=== PATIENT | female | born 1980 | race Caucasian/White ===

== ENCOUNTER 2024-11-20 14:49 | Emergency (ER) | payer OTHER, SELFPAY ==
[2024-11-20] VITALS (21 sets, daily range): BP systolic 98–117; BP diastolic 60–73; PULSE 86–109; TEMP 37.2; O2SAT 94–100; BMI 23.9
--- NOTE | 2024-11-20 15:08 | ECG_ITS ---
[facility] Test Date: 2024-11-20 Pat Name: JULI GONSALVES Department: Room: - Gender: Female [employer]: : 1980 Requested By: Order Number: [id number] Reading MD: PRIYA AKHTAR Measurements Intervals [place] Rate: 102 P: 66 [place]: 124 QRS: 83 QRSD: 82 T: 58 QT: 360 QTc: 419 Interpretive Statements 1120 Sinus tachycardia [address] depression Inferolateral ST/T wave changes, can't exclude inferolateral ischemia 9140 abnormal rhythm ECG No previous ECG available for comparison Electronically Signed On 11-21-2024 8:13:10 EST by PRIYA AKHTAR
--- NOTE | 2024-11-20 15:10 | ED.CHESTPAI1 ---
Documented by User: KATE Pool 11/20/24 17:33 HPI - Chest Pain General Chief Complaint: Chest Pain Stated Complaint: CHEST TIGHTNESS Time Seen by Provider: 11/20/24 15:03 Source: patient Mode of arrival: walk-in Limitations: no limitations Related Data Previous Rx's ?Medication ?Instructions ?Recorded fwwtirbtzrcxtmg-xpbuqhwialhtvhy-YF 10 ml PO Q6H PRN cold symptoms 11/20/24 2 mg-30 mg-10 mg/5 mL oral syrup #200 mL (Bromfed DM) methylprednisolone 4 mg tablets in See Rx Instructions .Route 11/20/24 a dose pack (Medrol (Micah)) .COMPLEX #21 ea Allergies Allergy/AdvReac Type Severity Reaction Status Date / Time No Known Drug Allergies Allergy Verified 11/20/24 15:02 PFSH PFSH Social History Little interest or pleasure in doing things: not at all Feeling down, depressed, or hopeless: not at all Exam Constitutional Vital Signs, click to edit/add: Last Vital Signs Temp 99.0 F 11/20/24 14:59 Pulse 98 H 11/20/24 17:30 Resp 18 11/20/24 17:30 BP 104/64 11/20/24 17:30 Pulse Ox 96 11/20/24 17:20 O2 Del Method Room Air 11/20/24 15:27 Course Vital Signs Vital signs: Vital Signs Pulse Rate 109 H 11/20/24 14:58 Respiratory Rate 39 H 11/20/24 14:58 Blood Pressure 117/69 11/20/24 14:58 Pulse Oximetry 100 11/20/24 14:58 Temperature 99.0 F 11/20/24 14:59 Pulse Rate 98 H 11/20/24 17:30 Respiratory Rate 18 11/20/24 17:30 Blood Pressure 104/64 11/20/24 17:30 Pulse Oximetry 96 11/20/24 17:20 Oxygen Delivery Method Room Air 11/20/24 15:27 MDM - Chest Pain MDM Narrative Medical decision making narrative: Patient treated with IV fluids, Ativan with significant improvement of hyperventilation. Laboratory studies reviewed and noted within normal limits including D-dimer, troponin and CBC. She was found to have an elevated lactic acid and repeat lactic acid is within normal limits after IV fluid administration. Tachycardia has resolved. Patient is breathing easily and resting comfortably on reevaluation. Chest x-ray with no obvious consolidation in the chest. She is placed on Bromfed-DM and a Medrol Dosepak. Follow-up PCP and return to the ER if symptoms change or worsen. SUPERVISED APC VISIT, PHYSICIAN ATTESTATION: Based on the medical record the care appears appropriate. ? Medical Records Data Attestation: I reviewed the patient's medical records. Lab Data Attestation: I reviewed the patient's lab results. Labs: Lab Results 11/20/24 11/20/24 Range/Units 15:11 16:52 WBC 7.3 (4.0-11.0) 10^3/uL RBC 4.11 L (4.20-5.40) 10^6/uL Hgb 13.1 (12.0-16.0) g/dL Hct 38.5 (36.0-48.0) % MCV 93.7 (81.0-99.0) fL MCH 31.9 (26.7-34.0) pg MCHC 34.0 (29.9-35.2) g/dL RDW 12.0 (11.0-15.0) % Plt Count 227 (150-450) 10^3/uL MPV 10.1 (9.5-13.5) fL Neut % (Auto) 76.0 H (43.0-75.0) % Lymph % (Auto) 9.8 L (20.5-60.0) % [place] % (Auto) 13.1 H (1.7-12.0) % Eos % (Auto) 0.4 L (0.9-7.0) % Baso % (Auto) 0.4 (0.2-2.0) % Neut # (Auto) 5.6 (1.4-6.5) 10^3/uL Lymph # (Auto) 0.7 L (1.2-3.8) 10^3/uL [place] # (Auto) 1.0 H (0.3-0.8) 10^3/uL Eos # (Auto) 0.0 (0.0-0.7) 10^3/uL Baso # (Auto) 0.0 (0.0-0.1) 10^3/uL Abs Immat Gran (auto) 0.02 (0.00-0.03) 10^3/uL Imm/Tot Granulo (auto) 0.3 (0.0-0.5) % PT 12.3 H (9.0-11.6) sec INR 1.18 D-Dimer <0.19 (<=0.59) mg/L FEU VBG pH 7.547 H (7.330-7.430) VBG pCO2 25.5 L (40.0-52.0) mmHg Sodium 138 (136-145) mmol/L Potassium 4.0 (3.5-5.1) mmol/L Chloride 102 (98-107) mmol/L Carbon Dioxide 23.0 (21.0-32.0) mmol/L Anion Gap 17.0 BUN 15.0 (7.0-18.0) mg/dL Creatinine 1.20 H (0.55-1.02) mg/dL Est GFR ( Amer) 59 L (>=60 mL/min/1.73m^2) Est GFR (Non-Af Amer) 49 L (>=60 mL/min/1.73m^2) BUN/Creatinine Ratio 12.5 Glucose 124 H (74-106) mg/dL Lactate 3.2 H* 0.6 (0.4-2.0) mmol/L Calcium 9.5 (8.5-10.1) mg/dL Total Bilirubin 0.3 (0.2-1.0) mg/dL AST 14 L (15-37) U/L ALT 24 (14-59) U/L Alkaline Phosphatase 64 (46-116) U/L Troponin I High Sens 4.5 (4.0-51.3) pg/mL NT-Pro-B Natriuret Pep 95.0 (<=450.0) pg/mL Total Protein 7.8 (6.4-8.2) g/dL Albumin 4.2 (3.4-5.0) g/dL Globulin 3.6 g/dL Albumin/Globulin Ratio 1.2 Serum HCG, Qual Negative (NEGATIVE) Influenza Type A Ag Negative Influenza Type B Ag Negative SARS-CoV-2 Ag (CV2AG) Negative (NEGATIVE) Imaging Data Chest x-ray: Attestation: I have reviewed the pertinent imaging results. Radiologist's impression: ITS Impressions Chest X-Ray 11/20/24 16:44 IMPRESSION: Lungs are clear. No acute findings in the chest. Electronically authenticated by: BRIDGER JESUS Date: 11/20/2024 17:50 ECG Data Attestation: I personally reviewed and interpreted this ECG as follows: (Sinus tachycardia at a rate of 102, no acute ST elevation or ectopy. EKG reviewed by attending physician.) Heart Score History: Slightly/Non-Suspicious ECG: Normal Age: >45-<65 years Risk Factors: No Risk Factors Troponin: <Normal Limit Total Heart Score Recommendations & Risks:: 1 Discharge Plan Discharge Chief Complaint: Chest Pain Clinical Impression: Upper respiratory infection, Chest pain Patient Disposition: Home, Self-Care Time of Disposition Decision: 17:30 Condition: Good Prescriptions / Home Meds: New methylprednisolone [Medrol (Micah)] 4 mg tablets,dose pack See Rx Instructions .ROUTE .COMPLEX Qty: 21 0RF Rx Instructions: Taper as directed itridpjyeghpiwj-vgqfvzftn-OH [Bromfed DM] 2-30-10 mg/5 mL syrup 10 ml PO Q6H PRN (Reason: cold symptoms) Qty: 200 0RF Print Language: Burmese Instructions: Upper Respiratory Infection (ED), Noncardiac Chest Pain (ED) Referrals: Physician,Non-Staff, MD [Primary Care Provider] - 1 week Discharge Date/Time: 11/20/24 17:43 Documented by User: Jimi Chino 11/20/24 18:14 HPI - Chest Pain General Chief Complaint: Chest Pain Stated Complaint: CHEST TIGHTNESS Time Seen by Provider: 11/20/24 15:03 Related Data Previous Rx's ?Medication ?Instructions ?Recorded fnpdkxuujnviela-gohowkumxfsfyjv-AF 10 ml PO Q6H PRN cold symptoms 11/20/24 2 mg-30 mg-10 mg/5 mL oral syrup #200 mL (Bromfed DM) methylprednisolone 4 mg tablets in See Rx Instructions .Route 11/20/24 a dose pack (Medrol (Micah)) .COMPLEX #21 ea Allergies Allergy/AdvReac Type Severity Reaction Status Date / Time No Known Drug Allergies Allergy Verified 11/20/24 15:02 PFSH PFSH Social History Little interest or pleasure in doing things: not at all Feeling down, depressed, or hopeless: not at all Exam Constitutional Vital Signs, click to edit/add: Last Vital Signs Temp 99.0 F 11/20/24 14:59 Pulse 98 H 11/20/24 17:30 Resp 18 11/20/24 17:30 BP 104/64 11/20/24 17:30 Pulse Ox 96 11/20/24 17:20 O2 Del Method Room Air 11/20/24 15:27 Course Vital Signs Vital signs: Vital Signs Pulse Rate 109 H 11/20/24 14:58 Respiratory Rate 39 H 11/20/24 14:58 Blood Pressure 117/69 11/20/24 14:58 Pulse Oximetry 100 11/20/24 14:58 Temperature 99.0 F 11/20/24 14:59 Pulse Rate 98 H 11/20/24 17:30 Respiratory Rate 18 11/20/24 17:30 Blood Pressure 104/64 11/20/24 17:30 Pulse Oximetry 96 11/20/24 17:20 Oxygen Delivery Method Room Air 11/20/24 15:27 MDM - Chest Pain Lab Data Labs: Lab Results 11/20/24 11/20/24 Range/Units 15:11 16:52 WBC 7.3 (4.0-11.0) 10^3/uL RBC 4.11 L (4.20-5.40) 10^6/uL Hgb 13.1 (12.0-16.0) g/dL Hct 38.5 (36.0-48.0) % MCV 93.7 (81.0-99.0) fL MCH 31.9 (26.7-34.0) pg MCHC 34.0 (29.9-35.2) g/dL RDW 12.0 (11.0-15.0) % Plt Count 227 (150-450) 10^3/uL MPV 10.1 (9.5-13.5) fL Neut % (Auto) 76.0 H (43.0-75.0) % Lymph % (Auto) 9.8 L (20.5-60.0) % [place] % (Auto) 13.1 H (1.7-12.0) % Eos % (Auto) 0.4 L (0.9-7.0) % Baso % (Auto) 0.4 (0.2-2.0) % Neut # (Auto) 5.6 (1.4-6.5) 10^3/uL Lymph # (Auto) 0.7 L (1.2-3.8) 10^3/uL [place] # (Auto) 1.0 H (0.3-0.8) 10^3/uL Eos # (Auto) 0.0 (0.0-0.7) 10^3/uL Baso # (Auto) 0.0 (0.0-0.1) 10^3/uL Abs Immat Gran (auto) 0.02 (0.00-0.03) 10^3/uL Imm/Tot Granulo (auto) 0.3 (0.0-0.5) % PT 12.3 H (9.0-11.6) sec INR 1.18 D-Dimer <0.19 (<=0.59) mg/L FEU VBG pH 7.547 H (7.330-7.430) VBG pCO2 25.5 L (40.0-52.0) mmHg Sodium 138 (136-145) mmol/L Potassium 4.0 (3.5-5.1) mmol/L Chloride 102 (98-107) mmol/L Carbon Dioxide 23.0 (21.0-32.0) mmol/L Anion Gap 17.0 BUN 15.0 (7.0-18.0) mg/dL Creatinine 1.20 H (0.55-1.02) mg/dL Est GFR ( Amer) 59 L (>=60 mL/min/1.73m^2) Est GFR (Non-Af Amer) 49 L (>=60 mL/min/1.73m^2) BUN/Creatinine Ratio 12.5 Glucose 124 H (74-106) mg/dL Lactate 3.2 H* 0.6 (0.4-2.0) mmol/L Calcium 9.5 (8.5-10.1) mg/dL Total Bilirubin 0.3 (0.2-1.0) mg/dL AST 14 L (15-37) U/L ALT 24 (14-59) U/L Alkaline Phosphatase 64 (46-116) U/L Troponin I High Sens 4.5 (4.0-51.3) pg/mL NT-Pro-B Natriuret Pep 95.0 (<=450.0) pg/mL Total Protein 7.8 (6.4-8.2) g/dL Albumin 4.2 (3.4-5.0) g/dL Globulin 3.6 g/dL Albumin/Globulin Ratio 1.2 Serum HCG, Qual Negative (NEGATIVE) Influenza Type A Ag Negative Influenza Type B Ag Negative SARS-CoV-2 Ag (CV2AG) Negative (NEGATIVE) Imaging Data Chest x-ray: Radiologist's impression: ITS Impressions Chest X-Ray 11/20/24 16:44 IMPRESSION: Lungs are clear. No acute findings in the chest. Electronically authenticated by: BRIDGER JESUS Date: 11/20/2024 17:50 Heart Score Total Heart Score Recommendations & Risks:: 1 Discharge Plan Discharge Chief Complaint: Chest Pain Clinical Impression: Upper respiratory infection, Chest pain Patient Disposition: Home, Self-Care Time of Disposition Decision: 17:30 Condition: Good Prescriptions / Home Meds: New methylprednisolone [Medrol (Micah)] 4 mg tablets,dose pack See Rx Instructions .ROUTE .COMPLEX Qty: 21 0RF Rx Instructions: Taper as directed eawicqzjzmkcltp-llgilzamz-NW [Bromfed DM] 2-30-10 mg/5 mL syrup 10 ml PO Q6H PRN (Reason: cold symptoms) Qty: 200 0RF Print Language: Burmese Instructions: Upper Respiratory Infection (ED), Noncardiac Chest Pain (ED) Referrals: Physician,Non-Staff, MD [Primary Care Provider] - 1 week Discharge Date/Time: 11/20/24 17:43
[2024-11-20] MEDS: 0.9 % SODIUM CHLORIDE 1,000 ML 999 ML IV (15:18)
[2024-11-20] MEDS: LORAZEPAM 2 MG/ML VIAL 1 MG IV (15:20)
[2024-11-20] MEDS: METHYLPREDNISOLONE SOD SUCC PF 125 MG/2 ML VIAL IVP (15:20)
[2024-11-20 15:49] LABS: Basophils Percent Auto 0.4 % (0.2-2.0); Eosinophils Percent Auto 0.4 % (0.9-7.0); Hematocrit 38.5 % (36.0-48.0); Hemoglobin 13.1 g/dL (12.0-16.0); Immature Granulocytes Abs Auto 0.02 10^3/uL (0.00-0.03); Immature Granulocytes Pct Auto 0.3 % (0.0-0.5); Lymphocytes Absolute Auto 0.7 10^3/uL (1.2-3.8); Lymphocytes Percent Auto 9.8 % (20.5-60.0); Mean Corpuscular Hemoglobin 31.9 pg (26.7-34.0); Mean Corpuscular Volume 93.7 fL (81.0-99.0); Mean Platelet Volume 10.1 fL (9.5-13.5); Monocytes Percent Auto 13.1 % (1.7-12.0); Neutrophils Absolute Auto 5.6 10^3/uL (1.4-6.5); Platelet Count 227 10^3/uL (150-450); Red Blood Count 4.11 10^6/uL (4.20-5.40); White Blood Count 7.3 10^3/uL (4.0-11.0)
[2024-11-20 16:18] LABS: PCO2 VBG 25.5 mmHg (40.0-52.0); pH VBG 7.547 (7.330-7.430)
[2024-11-20 16:22] LABS: Lactate/Lactic Acid 3.2 mmol/L (0.4-2.0)
[2024-11-20 16:25] LABS: HCG Qualitative NEGATIVE (NEGATIVE); Internal Control Within Normal Limits
[2024-11-20 16:26] LABS: Influenza Virus A Antigen Negative; Influenza Virus B Antigen Negative; Internal Control Within Normal Limits; SARS-CoV-2 Ag NEGATIVE (NEGATIVE)
[2024-11-20 16:41] LABS: INR 1.18; Prothrombin Time 12.3 sec (9.0-11.6)
[2024-11-20 16:42] LABS: D Dimer <0.19 mg/L FEU (<=0.59)
--- NOTE | 2024-11-20 16:44 | XR_ITS ---
The [address] [address] Patient Name: JULI GONSALVES MRN: [id number] date: 1980 Sex: F Assigned Patient Location: ER Current Patient Location: ER Accession/Order Number: [id number] Exam Date: 11/20/2024 16:54 Report Date: 11/20/2024 18:29 At the request of: ISH WOODWARD Procedure: XR chest 1V CHEST X-RAY, 11/20/2024. HISTORY: Chest pain. COMPARISON: None. FINDINGS: Single view of the chest was obtained. The heart size is normal. Mediastinal contours are normal. There is no pleural effusion. No airspace consolidation. No pulmonary edema. No pneumothorax. XR/XR chest 1V IMPRESSION: Lungs are clear. No acute findings in the chest. Electronically authenticated by: BRIDGER JESUS Date: 11/20/2024 18:29
[2024-11-20 16:48] LABS: Alanine Aminotransferase 24 U/L (14-59); Albumin Globulin Ratio 1.2; Albumin Level 4.2 g/dL (3.4-5.0); Alkaline Phosphatase 64 U/L (46-116); Aspartate Amino Transferase 14 U/L (15-37); BUN Creatinine Ratio 12.5; Bilirubin Total 0.3 mg/dL (0.2-1.0); Calcium 9.5 mg/dL (8.5-10.1); Chloride 102 mmol/L (98-107); Estimated GFR (African America 59 (>=60 mL/min/1.73m^2); Estimated GFR (Non-African Ame 49 (>=60 mL/min/1.73m^2); Globulin 3.6 g/dL; Glucose 124 mg/dL (74-106); Sodium 138 mmol/L (136-145); Total Protein 7.8 g/dL (6.4-8.2); Troponin I High Sensitivity 4.5 pg/mL (4.0-51.3)
[2024-11-20 17:22] LABS: Lactate/Lactic Acid 0.6 mmol/L (0.4-2.0)
== END 2024-11-20 17:43 | disposition home or self-care (01) ==
PROVIDERS: Physician Assistant; Emergency Provider Emergency Medicine
DX: R07.9 Chest pain, unspecified (principal); J06.9 Acute upper respiratory infection, unspecified
CPT/HCPCS: 36415; 71045; 80053; 82800; 83605; 83880; 84484; 84703; 85025; 85378; 85610; 87804; 87811; 93005; 96374; 96375; 99285; J2060; J2919